=== PATIENT | female | born 1965 | race Caucasian/White ===

== ENCOUNTER → 2020-04-23 14:47 | Outpatient (CLI) | payer MEDICARE, SELFPAY ==
[2020-04-23 14:58] LABS: Basophils # 0.1 K/mm3 (0-0.2); Basophils % 1.4 % (0.1-2.0); Eosinophils # 0.1 K/mm3 (0.0-0.4); Eosinophils % 1.3 % (0.1-12.0); Hematocrit 47.3 % (37.0-47.0); Hemoglobin 15.4 g/dL (12.2-16.2); Lymphocytes # 2.9 K/mm3 (0.7-4.5); Lymphocytes % 33.4 % (10-50); Mean Corpuscular HGB Conc 32.5 g/dL (31.8-35.4); Mean Corpuscular Hemoglobin 28.6 pg (27.0-31.2); Mean Corpuscular Volume 88.1 fl (81-99); Mean Platelet Volume 9.1 fl (7.4-10.4); Monocytes # 0.4 K/mm3 (0.1-1.0); Monocytes % 4.7 % (1.7-9.3); Neutrophils # 5.2 K/mm3 (1.8-7.8); Neutrophils % 59.3 % (37.0-80.0); Platelet Count 245 K/mm3 (142-424); Red Blood Count 5.37 M/mm3 (4.20-5.40); White Blood Count 8.7 K/mm3 (4.8-10.8)
[2020-04-23 15:07] LABS: Alanine Aminotransferase 11 U/L (12-78); Albumin Level 4.2 g/dl (3.5-5.0); Albumin/Globulin Ratio 1.4 (1.1-1.8); Alkaline Phosphatase 107 U/L (38-126); Anion Gap 11.5 mEq/L (5-15); Aspartate Amino Transferase 23 U/L (14-36); Bilirubin,Total 0.5 mg/dl (0.2-1.3); Blood Urea Nitrogen 12 mg/dl (7-17); Calcium 9.3 mg/dl (8.4-10.2); Carbon Dioxide 31 mmol/L (22.0-30.0); Chloride 101 mmol/L (98-107); Chol/HDL Ratio 5.4 (1-3.5); Cholesterol 298 mg/dl (140-200); Estimated Glomerular Filt Rate 87 ml/min (>60); GFR (African American) 106 ML/MIN (>60); Glucose 105 mg/dl (74-100); HDL Cholesterol 55 mg/dl (40-60); Potassium 4.5 mmoL/L (3.5-5.1); Sodium 139 mmol/L (136-145); Total Protein,Serum 7.2 g/dl (6.3-8.2); Triglycerides 146 mg/dl (30-150); VLDL Cholesterol 29 mg/dL (0-40)
[2020-04-23 15:18] LABS: Direct LDL Cholesterol 212.71 mg/dL (100-129)
[2020-04-23 15:26] LABS: 25-OH Vitamin D, Total 24.5 ng/mL (30-100)
[2020-04-23 15:40] LABS: Thyroid Stimulating Hormone 0.89 uIU/mL (0.465-4.68)
== END ==
PROVIDERS: Visit Provider Family Medicine
DX: E55.9 Vitamin D deficiency, unspecified (principal); F32.9 Major depressive disorder, single episode, unspecified; I10 Essential (primary) hypertension; E78.5 Hyperlipidemia, unspecified
CPT/HCPCS: 80053; 80061; 82306; 84443; 85025

== ENCOUNTER → 2020-09-18 13:55 | Outpatient (CLI) | payer MEDICARE, SELFPAY ==
[2020-09-18 14:05] LABS: Chloride 103 mmol/L (98-107)
[2020-09-18 14:06] LABS: Potassium 4.2 mmoL/L (3.5-5.1); Sodium 142 mmol/L (136-145)
[2020-09-18 14:08] LABS: Alanine Aminotransferase 30 U/L (12-78); Alkaline Phosphatase 112 U/L (38-126); Anion Gap 15.2 mEq/L (5-15); Aspartate Amino Transferase 45 U/L (14-36); Bilirubin,Total 0.5 mg/dl (0.2-1.3); Blood Urea Nitrogen 11 mg/dl (7-17); Carbon Dioxide 28 mmol/L (22.0-30.0); Cholesterol 135 mg/dl (140-200); Estimated Glomerular Filt Rate 87 ml/min (>60); GFR (African American) 105 ML/MIN (>60); Triglycerides 108 mg/dl (30-150)
[2020-09-18 14:09] LABS: Albumin Level 4.6 g/dl (3.5-5.0); Albumin/Globulin Ratio 1.7 (1.1-1.8); Calcium 9.2 mg/dl (8.4-10.2); Globulin 2.7 g/dL (1.3-3.2); Glucose 90 mg/dl (74-100); Total Protein,Serum 7.3 g/dl (6.3-8.2)
[2020-09-18 18:13] LABS: Direct LDL Cholesterol 64.28 mg/dL (100-129)
[2020-09-18 18:14] LABS: HDL Cholesterol 45 mg/dl (40-60); VLDL Cholesterol 22 mg/dL (0-40)
== END ==
PROVIDERS: Visit Provider Family Medicine
DX: E78.5 Hyperlipidemia, unspecified (principal)
CPT/HCPCS: 80053; 80061

== ENCOUNTER → 2021-03-05 13:25 | Outpatient (CLI) | payer MEDICARE, SELFPAY ==
[2021-03-05 15:48] LABS: Basophils # 0.1 K/mm3 (0-0.2); Basophils % 0.9 % (0.1-2.0); Eosinophils # 0.1 K/mm3 (0.0-0.4); Eosinophils % 1.5 % (0.1-12.0); Hematocrit 46.7 % (37.0-47.0); Hemoglobin 15.1 g/dL (12.2-16.2); Lymphocytes # 2.8 K/mm3 (0.7-4.5); Lymphocytes % 33.7 % (10-50); Mean Corpuscular HGB Conc 32.3 g/dL (31.8-35.4); Mean Corpuscular Hemoglobin 28.5 pg (27.0-31.2); Mean Corpuscular Volume 88.4 fl (81-99); Mean Platelet Volume 9.4 fl (7.4-10.4); Monocytes # 0.4 K/mm3 (0.1-1.0); Monocytes % 4.5 % (1.7-9.3); Neutrophils # 4.9 K/mm3 (1.8-7.8); Neutrophils % 59.3 % (37.0-80.0); Platelet Count 307 K/mm3 (142-424); Red Blood Count 5.28 M/mm3 (4.20-5.40); Red Cell Distribution Width 13.2 % (11.5-17.5); White Blood Count 8.2 K/mm3 (4.8-10.8)
[2021-03-05 16:02] LABS: Alanine Aminotransferase 24 U/L (12-78); Albumin Level 4.5 g/dl (3.5-5.0); Albumin/Globulin Ratio 1.7 (1.1-1.8); Alkaline Phosphatase 100 U/L (38-126); Aspartate Amino Transferase 39 U/L (14-36); Bilirubin,Total 0.5 mg/dl (0.2-1.3); Blood Urea Nitrogen 14 mg/dl (7-17); Calcium 9.2 mg/dl (8.4-10.2); Carbon Dioxide 33 mmol/L (22.0-30.0); Chloride 102 mmol/L (98-107); Chol/HDL Ratio 2.3 (1-3.5); Cholesterol 142 mg/dl (140-200); Estimated Glomerular Filt Rate 104 ml/min (>60); GFR (African American) 126 ML/MIN (>60); Globulin 2.6 g/dL (1.3-3.2); Glucose 94 mg/dl (74-100); HDL Cholesterol 61 mg/dl (40-60); Sodium 142 mmol/L (136-145); Total Protein,Serum 7.1 g/dl (6.3-8.2); Triglycerides 76 mg/dl (30-150); VLDL Cholesterol 15 mg/dL (0-40)
[2021-03-05 16:13] LABS: Direct LDL Cholesterol 71.05 mg/dL (100-129)
== END ==
PROVIDERS: Visit Provider Family Medicine
DX: I25.10 Atherosclerotic heart disease of native coronary artery without angina pectoris (principal)
CPT/HCPCS: 80053; 80061; 85025

== ENCOUNTER → 2022-01-18 13:30 | Outpatient (CLI) | payer MEDICARE, SELFPAY ==
[2022-01-18 14:53] LABS: Alanine Aminotransferase 20 U/L (12-78); Albumin Level 4.2 g/dl (3.5-5.0); Albumin/Globulin Ratio 1.6 (1.1-1.8); Alkaline Phosphatase 108 U/L (38-126); Aspartate Amino Transferase 60 U/L (14-36); Bilirubin,Total 0.2 mg/dl (0.2-1.3); Blood Urea Nitrogen 14 mg/dl (7-17); Calcium 8.5 mg/dl (8.4-10.2); Carbon Dioxide 33 mmol/L (22.0-30.0); Chloride 100 mmol/L (98-107); Chol/HDL Ratio 2.9 (1-3.5); Cholesterol 128 mg/dl (140-200); Estimated Glomerular Filt Rate 128 ml/min (>60); GFR (African American) 154 ML/MIN (>60); Globulin 2.7 g/dL (1.3-3.2); Glucose 89 mg/dl (74-100); HDL Cholesterol 44 mg/dl (40-60); Sodium 141 mmol/L (136-145); Total Protein,Serum 6.9 g/dl (6.3-8.2); Triglycerides 105 mg/dl (30-150); VLDL Cholesterol 21 mg/dL (0-40)
[2022-01-18 15:04] LABS: Direct LDL Cholesterol 56.36 mg/dL (100-129)
== END ==
PROVIDERS: PCP Family Medicine; Visit Provider Family Medicine
DX: E78.5 Hyperlipidemia, unspecified (principal); I11.9 Hypertensive heart disease without heart failure; I25.10 Atherosclerotic heart disease of native coronary artery without angina pectoris
CPT/HCPCS: 80053; 80061

== ENCOUNTER → 2023-03-13 09:59 | Outpatient (CLI) | payer MEDICARE, SELFPAY ==
[2023-03-13 18:02] LABS: MANUAL DIFFERENTIAL MANUAL DIFFERENTIAL (MANUAL DIFF)
[2023-03-13 18:11] LABS: Basophils # 0.1 K/mm3 (0-0.2); Basophils % 0.6 % (0.1-2.0); Eosinophils # 0.1 K/mm3 (0.0-0.4); Eosinophils % 1.1 % (0.1-12.0); Hematocrit 45.7 % (37.0-47.0); Hemoglobin 14.8 g/dL (12.2-16.2); Lymphocytes # 2.7 K/mm3 (0.7-4.5); Lymphocytes % 29.1 % (10-50); Mean Corpuscular HGB Conc 32.5 g/dL (31.8-35.4); Mean Corpuscular Volume 89.4 fl (81-99); Mean Platelet Volume 10.4 fl (7.4-10.4); Monocytes # 0.4 K/mm3 (0.1-1.0); Monocytes % 4.6 % (1.7-9.3); Neutrophils # 6.1 K/mm3 (1.8-7.8); Neutrophils % 64.6 % (37.0-80.0); Platelet Count 182 K/mm3 (142-424); Red Blood Count 5.11 M/mm3 (4.20-5.40); Red Cell Distribution Width 13.8 % (11.5-17.5); White Blood Count 9.4 K/mm3 (4.8-10.8)
[2023-03-13 18:18] LABS: Alanine Aminotransferase 26 U/L (12-78); Albumin/Globulin Ratio 1.5 (1.1-1.8); Alkaline Phosphatase 86 U/L (38-126); Aspartate Amino Transferase 44 U/L (14-36); Bilirubin,Total 0.3 mg/dl (0.2-1.3); Blood Urea Nitrogen 16 mg/dl (7-17); Calcium 8.2 mg/dl (8.4-10.2); Carbon Dioxide 33 mmol/L (22.0-30.0); Chloride 101 mmol/L (98-107); Chol/HDL Ratio 3.4 (1-3.5); Cholesterol 148 mg/dl (140-200); Estimated Glomerular Filt Rate 86 ml/min (>60); GFR (African American) 104 ML/MIN (>60); Globulin 2.6 g/dL (1.3-3.2); Glucose 106 mg/dl (74-100); HDL Cholesterol 44 mg/dl (40-60); Potassium 4.5 mmoL/L (3.5-5.1); Total Protein,Serum 6.6 g/dl (6.3-8.2); Triglycerides 102 mg/dl (30-150); VLDL Cholesterol 20 mg/dL (0-40)
[2023-03-13 18:26] LABS: Lymphocytes % 35 % (10-50); Monocytes % 7 % (2-9); Neutrophils % 58 % (42-76); Platelet Estimate Normal; RBC Morphology Normal; Total Cells Counted 100
[2023-03-13 18:28] LABS: Direct LDL Cholesterol 78.36 mg/dL (100-129)
[2023-03-13 18:37] LABS: Anion Gap 9.5 mEq/L (5-15); Sodium 139 mmol/L (136-145)
== END ==
PROVIDERS: PCP Family Medicine; Visit Provider Family Medicine
DX: E78.5 Hyperlipidemia, unspecified (principal); I25.10 Atherosclerotic heart disease of native coronary artery without angina pectoris; Z79.899 Other long term (current) drug therapy
CPT/HCPCS: 80053; 80061; 84443; 85007; 85014; 85018; 85048; 85049

== ENCOUNTER 2024-02-28 10:31 | Outpatient (CLI) | payer MEDICARE, SELFPAY ==
[2024-02-28 18:55] LABS: Basophils # 0.1 K/mm3 (0-0.2); Basophils % 0.8 % (0.1-2.0); Eosinophils # 0.1 K/mm3 (0.0-0.4); Hematocrit 49.3 % (37.0-47.0); Hemoglobin 16.2 g/dL (12.2-16.2); Lymphocytes # 2.5 K/mm3 (0.7-4.5); Lymphocytes % 21.5 % (10-50); Mean Corpuscular HGB Conc 32.8 g/dL (31.8-35.4); Mean Corpuscular Hemoglobin 29.2 pg (27.0-31.2); Mean Platelet Volume 10.2 fl (7.4-10.4); Monocytes # 0.6 K/mm3 (0.1-1.0); Monocytes % 5.2 % (1.7-9.3); Neutrophils # 8.4 K/mm3 (1.8-7.8); Neutrophils % 71.7 % (37.0-80.0); Platelet Count 224 K/mm3 (142-424); Red Blood Count 5.54 M/mm3 (4.20-5.40); Red Cell Distribution Width 13.3 % (11.5-17.5); White Blood Count 11.7 K/mm3 (4.8-10.8)
[2024-02-28 19:14] LABS: Alanine Aminotransferase 25 U/L (12-78); Albumin Level 4.7 g/dl (3.5-5.0); Albumin/Globulin Ratio 1.7 (1.1-1.8); Alkaline Phosphatase 83 U/L (38-126); Aspartate Amino Transferase 37 U/L (14-36); Bilirubin,Total 0.6 mg/dl (0.2-1.3); Blood Urea Nitrogen 13 mg/dl (7-17); Calcium 9.6 mg/dl (8.4-10.2); Carbon Dioxide 31 mmol/L (22.0-30.0); Chloride 103 mmol/L (98-107); Chol/HDL Ratio 2.2 (1-3.5); Cholesterol 162 mg/dl (140-200); Estimated Glomerular Filt Rate 86 ml/min (>60); GFR (African American) 104 ML/MIN (>60); Globulin 2.7 g/dL (1.3-3.2); Glucose 96 mg/dl (74-100); HDL Cholesterol 74 mg/dl (40-60); Sodium 139 mmol/L (136-145); Total Protein,Serum 7.4 g/dl (6.3-8.2); Triglycerides 89 mg/dl (30-150); VLDL Cholesterol 18 mg/dL (0-40)
[2024-02-28 19:25] LABS: Direct LDL Cholesterol 83.35 mg/dL (100-129)
== END 2024-02-28 23:59 | disposition home or self-care (01) ==
LOC: LAB.DROPOF 02-29 14:35
PROVIDERS: PCP Family Medicine; Visit Provider Family Medicine
DX: E78.5 Hyperlipidemia, unspecified (principal)
CPT/HCPCS: 80053; 80061; 85025

== ENCOUNTER 2025-03-03 08:12 | Outpatient (CLI) | payer MEDICARE, SELFPAY ==
[2025-03-03 15:38] LABS: Hematocrit 46.8 % (37.0-47.0); Hemoglobin 15.2 g/dL (12.2-16.2); Immature Granulocytes % 0.2 %; Mean Corpuscular HGB Conc 32.5 g/dL (31.8-35.4); Mean Corpuscular Hemoglobin 29.0 pg (27.0-31.2); Mean Corpuscular Volume 89.1 fl (81-99); Nucleated Red Blood Cells % 0 %; Platelet Count 203 K/mm3 (142-424); Red Blood Count 5.25 M/mm3 (4.20-5.40); Red Cell Distribution Width-SD 44.7 fL; White Blood Count 8.5 K/mm3 (4.8-10.8)
[2025-03-03 15:54] LABS: Albumin Level 4.4 g/dl (3.5-5.0); Chloride 102 mmol/L (98-107); Potassium 4.5 mmoL/L (3.5-5.1); Sodium 142 mmol/L (136-145)
[2025-03-03 15:56] LABS: Blood Urea Nitrogen 19 mg/dl (7-17); Creatinine,Serum 0.60 mg/dl (0.52-1.04); Estimated Glomerular Filt Rate 102 ml/min (>60); GFR (African American) 124 ML/MIN (>60)
[2025-03-03 15:57] LABS: Alanine Aminotransferase 26 U/L (12-78); Albumin/Globulin Ratio 1.6 (1.1-1.8); Alkaline Phosphatase 91 U/L (38-126); Anion Gap 11.5 mEq/L (5-15); Aspartate Amino Transferase 39 U/L (14-36); Bilirubin,Total 0.4 mg/dl (0.2-1.3); Calcium 9.1 mg/dl (8.4-10.2); Carbon Dioxide 33 mmol/L (22.0-30.0); Cholesterol 151 mg/dl (140-200); Globulin 2.8 g/dL (1.3-3.2); Glucose 103 mg/dl (74-100); HDL Cholesterol 75 mg/dl (40-60); Magnesium 1.8 mg/dl (1.6-2.3); Total Protein,Serum 7.2 g/dl (6.3-8.2); Triglycerides 44 mg/dl (30-150)
[2025-03-03 16:48] LABS: Hepatitis C Ab Qual. W/ RFX NEGATIVE (Negative)
[2025-03-04 06:39] LABS: Hepatitis B Surface Antigen Negative (Negative)
--- OUTSIDE RECORDS SUMMARY | 2025-03-05 08:42 | XMS_ITS | Data Portability ---
Author Organization Formerly [facility] Address [address] [place] [address] Care Team Providers Care Director Camp Name Role Phone MARIA D ELISE Primary Care Provider [phone] MARIA D ELISE Referring Provider [phone] Assessment Encounter Date Assessment Date Assessment LastModified by Organization Details LastModified Time 01/08/2019 01/08/2019 53-year-old female new patient referral for chronic low back and bilateral leg pain. She reports the pain started about 2 years ago related to no Precipitating injury that she can recall. She has been treating this with chiropractor and uisd-eah-srtfzkx medications with minimal relief. She tried muscle relaxants and NSAIDs again with minimal relief. She is not a fan of medications and she is here today to discuss possible interventional therapy. She did have a lumbar MRI From November 2018 which we reviewed today and shows L4-5 central and right sided Disc extrusion with impingement on the thecal sac. There is also degenerative disease at L3-4 and L5-S1. She reports the pain is located across the low back with radiation down the outside of both legs to the knees. She reports the pain does not typically go down past the knees. Pain is worse on the right sided than it is on the left. She has some decreased sensation along the outside of the right leg. She denies any weakness. She denies any bowel or bladder incontinence. She describes pain as a constant aching that is aggravated with activity including standing walking bending and lifting. We discussed treatment options including interventional therapy. History and exam are consistent with lumbar and leg pain from degenerative disc disease, supported by imaging. Has not responded to >3 months conservative therapy. Patient would not tolerate physical therapy secondary to increased pain with activity. Symptoms are affecting her ability to perform ADLs. I am going to schedule her for a bilateral transforaminal epidural injection at L4-5. She does not want any medications at this time so urine screen will not be sent off for confirmation. [email or web address] Not available 01/08/2019 13:46:58 Plan of Treatment Reminders Order Date Submit Date Provider Last Modified By Organization Details Last Modified Time Details Appointments None recorded. Lab drug screen, urine 2018 019 Not available 9 13:49:17 Referral None recorded. Procedures epidural steroid injection, lumbar transforami nal (PROC) 2018 019 [email or web address] 3 J Luis Paniagua MD, [address], [place], [address], 9 14:18:40 Surgeries None recorded. Imaging None recorded. Medication Orders None recorded. Patient TargetsNo targets recorded. 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 The electronic translation of spoken language may permit erroneous or at times nonsensical words of phrases to be inadvertently transcribed; Although I have reviewed the note for such errors, some may still exist. Not available 01/08/2019 13:09:44 Reason for Referral None Reported. Results Created Date Observation Date Name Description Value Unit Range Abnormal Flag Note LastModifiedBy Organization Detail LastModifiedTime 01/09/2001/08/2019 drug scree n, urine THC: positi ve Not Available [facility] [address], [place], [address], 01/08/2019 13:02:53 01/09/2001/08/2019 drug scree n, urine Buprenorphin e: negati ve Not Available [facility] [address], [place], [address], 01/08/2019 13:02:53 01/09/2001/08/2019 drug scree n, urine TCA: negati ve Not Available [facility] [address], [place], [address], 01/08/2019 13:02:53 01/09/20 19 01/08/2019 drug scree n, urine Barbiturates : negati ve Not Available [facility] [address], [place], [address], 01/08/2019 13:02:53 01/09/20 19 01/08/2019 drug scree n, urine Benzodiazepi rubi: positi ve Not Available [facility] [address], [place], [address], 01/08/2019 13:02:53 01/09/20 19 01/08/2019 drug scree n, urine Methadone: negati ve Not Available [facility] [address], [place], [address], 01/08/2019 13:02:53 01/09/20 19 01/08/2019 drug scree n, urine Amphetamines : negati ve Not Available [facility] [address], [place], [address], 01/08/2019 13:02:53 01/09/20 19 01/08/2019 drug scree n, urine Morphine/Opi ates: negati ve Not Available [facility] [address], [place], [address], 01/08/2019 13:02:53 01/09/20 19 01/08/2019 drug scree n, urine Oxycodone: negati ve Not Available [facility] [address], [place], [address], 01/08/2019 13:02:53 01/09/20 19 01/08/2019 drug scree n, urine MDMA: negati ve Not Available [facility] [address], [place], [address], 01/08/2019 13:02:53 01/09/20 19 01/08/2019 drug scree n, urine Cocaine: negati ve Not Available [facility] [address], [place], [address], 01/08/2019 13:02:53 01/09/20 19 01/08/2019 drug scree n, urine Methamphetam ine: negati ve Not Available [facility] [address], [place], [address], 01/08/2019 13:02:53 01/08/20 19 12/07/2018 MRI, lumba r spine , w/o contr ast No observ ation record ed. [email or web address] Not Available 2018 15:27:10 01/08/20 19 11/27/2018 MRI, cervi talya spine , w/o contr ast No observ ation record ed. [email or web address] Not Available 2018 15:31:36 Result Notes None recorded. Problems Name Problem SNOMED Code Status Onset Date Resolution Date Notes Provider Name and Address Organization Details Recorded Time Degeneration of lumbar intervertebra l disc 64378558 Active 2018 Isabella Wade aidan [facility] 9 13:39:18 Long-term drug therapy Active 2018 J Luis Panigaua MD [address] [place] [address], [address] , [facility] 9 13:48:56 Lumbar radiculopathy 023891473 Active 2018 J Luis Paniagua MD [address] [place] [address], [address] , [facility] 9 13:49:04 Problem Notes None recorded. Procedures Surgical History Date Name Laterality Status Provider Name and Address Organization Details Recorded Time 7 General Surgery completed Isabella KOHLI [facility] 01/08/2019 13:16:38 Imaging Results None recorded. Procedure Notes None recorded. Medical Equipment None Reported. Allergies No known drug allergies Medications Name Sig Start Date Stop Date Status Note LastModified by Organization Details LastModified Time prednisone 20 mg tablet 2018 completed Not Available Not Available Not Available atenolol 25 mg tablet active Not Available Not Available Not Available venlafaxine ER 150 mg capsule,extend ed release 24 hr active Not Available Not Available Not Available omeprazole 40 mg capsule,delaye d release active Not Available Not Available No t Available buspirone 10 mg tablet 2018 completed Not Available Not Available Not Available alprazolam 2 mg tablet active Not Available Not Available No t Available azithromycin 500 mg tablet 2018 completed Not Available Not Available Not Available Vitals Date Recorded Body height Body mass index (BMI) Body weight Pain severity - 0-10 verbal numeric rating [Score] - Reported Heart rate Oxygen saturation Oxygen saturation in Arterial blood by Pulse oximetry Systolic And Diastolic Provider Name and Address Organization Details Last Updated DateTime 9 168.91 cm 30.4 kg/m2 80896.1 4 g 7 80 /min 94 % 94 % 134/80 mm[Hg] Isabella Wade [facility] 9 13:13:19 Social History Question Answer Notes LastModified by Organizat ion Details LastModified Time Tobacco Smoking Status Current Every Day Smoker Isabella Wade [facility] 01/08/2019 13:10:52 What Is Your Level Of Caffeine Consumption? Occasional Information not available 01/08/2019 How Much Tobacco Do You Chew? None Information not available 01/08/2019 Are You Deaf Or Do You Have Serious Difficulty Hearing? No Information not available 01/08/2019 Which Illicit Or Recreational Drugs Have You Used? Marijuana Information not available 01/08/2019 Education 12 Information no t available 01/08/2019 Hard Of Hearing Or Deaf In One Or Both Ears? No Information not available 01/08/2019 Prescription Drug Abuse No Information not available 01/08/2019 Disability No Information no t available 01/08/2019 History Of Sexual Abuse No Information not available 01/08/2019 Marital Status Informatio n not available 01/08/2019 What Was The Date Of Your Most Recent Tobacco Screening? 01/08/2019 Information not available 01/08/2019 At What Age Did You Start Smoking Tobacco? 17 Information not available 01/08/2019 How Much Tobacco Do You Smoke? 1.5 PPD Information not available 01/08/2019 General Stress Level High Information not available 01/08/2019 On What Date Was Tobacco Cessation Counseling Provided? 01/08/2019 Information not available 01/08/2019 How Many Years Have You Smoked Tobacco? 33 Information not available 01/08/2019 Do You Have Difficulty Walking Or Climbing Stairs? Yes Information not available 01/08/2019 Sex: Unknown Functional Status Question Answer Note LastModified by Organizat ion Details LastModified Time What is your level of alcohol consumption? None Information not available 01/08/2019 Are you able to walk independently without assistance or assistive devices? YESWOREST Information not available 01/08/2019 Do you have difficulty doing errands alone? 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 Yes Information not available 01/08/2019 What is your exercise level? None Information not available 01/08/2019 Mental Status Question Answer Note LastModified by Organization D etails LastModified Time Do you have difficulty concentrating, remembering or making decisions? Yes Information no t available 01/08/2019 Family History Relationship Description Onset Age of this Age Resolved Age Notes LastModified by Organization Details LastModified Time Mother Fibromyalgia Not availa ble 01/08/2019 13:10:39 Mother Mental disorder Not available 2018 13:10:39 Mother Disease of liver Not available 2018 13:10:39 Mother Rheumatoid arthritis Not available 2018 13:10:39 Medical History Condition Response Bipolar Disease N Coronary Artery Disease N Gout N Seizure Disorder N Osteoarthritis N Hernia N Head Trauma/Injury N Depression Y Anemia N Heart Attack ([place]) N Anxiety Disorder Y Diabetes N Cardiomyopathy N Bleeding Disorder N AIDS/HIV N Inflammatory Bowel Disease N Cancer N Stroke N Dementia N Substance Abuse N Sleep Apnea N Hepatitis N Liver Disease N Heart Disease N Rheumatoid Arthritis N Chronic Low Back Pain N Headaches N Fibromyalgia N Hypertension N Osteoporosis N Kidney Disease N Autoimmune Disease N Gynecological HistoryNo gynecological history recorded. Obstetrics History GPAL:G 0 P 0 0 0 0 Past Encounters Encounter ID Performer Location Encounter Start Date Encounter Closed Date Diagnosis/Indication Diagnosis SNOMED-CT Code Diagnosis ICD10 Code Diagnosis IMO Codes Diagnosis Note [id number] J Luis Paniagua MD [facility] [address] [place] [address] 01/08/2019 13:01:45 01/08/2019 13:42:24 Long-term drug therapy 677605797 Z79.899 Degenerati on of lumbar intervertebral disc 88222345 M51.36 Lumbar radiculopathy 128 721186 M54.16 Health Concerns Section Related Observation LastModified by Organization Detai ls LastModified Time None Recorded Concern Status LastModified by Organization Details LastModified Time None Recorded Advance Directives Directive None Recorded Payers Insurance Date Sequence Insurance Name Policy Number Policy Stacy Covered Member ID Stacy Member ID Guarantor Name 12/27/2018 1 [id number] Isabel Cool [id number] Isabel Cool 01/05/2019 1 [place] [id number] Isabel Cool [id number] Isabel Cool Notes Date Note Type Note Provider Name and Address Organization Details Recorded Time 01/09/20 19 text/htm l Neck painReported by PatientHPIFor quality, patient reportstightnessandaching. For onset, patient reportsdate of onset: (12/2016). For location, patient reportsbilateral paraspinalandradiating to the bilateral upper extremities to the shoulder. For duration, patient reportsconstant. For context, patient reportsliftingandoveruse. For pain intensity, patient reportscurrent pain level: 6/10andworst pain level: 7/10. For alleviating factors, patient reportsheat,looking down,looking up, andlying down. For aggravating factors, patient reportscold weather,turning head to the left,turning head to the right,twisting, andmovement/positioning. For timing, patient reportsvaries throughout the day. For associated symptoms, patient reportsno weakness,no numbness,no tingling,no dizziness,no pain in upper extremities,no popping/clicking,no bladder incontinence, andno bowel incontinence. For prior imaging, patient reportsmri. For previous cervical surgery, patient reportsnone. For interventional treatment history, patient reportsnone. For previous pt, patient reportscompleted all recommended pt visits,2weeks of pt completed:,dates: (07/2018), andresponse to therapy: no pain improvement([facility]). For other conservative treatment, patient reportsice: __. For working, patient reportsno. For prior pain management, patient reportsno. Low back painReported by PatientHPIFor onset, patient reportsdate of onset: (2008). For location, patient reportsbuttock: __. For duration, patient reportsworse during the workday. For context, patient reportsoveruseandlifting. For quality, patient reportsaching,stabbing,throb ruiz, andsharp (intermittent). For pain intensity, patient reportssevere,current pain level: 7/10, andworst pain level: 9/10. For alleviating factors, patient reportschanging positions,heat,ice, andchiropractic care (minimal relief). For aggravating factors, patient reportssitting (long periods),standing,walking,up stairs,downstairs, andcold weather. For associated symptoms, patient reportsno weakness,no numbness,no tingling,no swelling,no popping/clicking,no bowel incontinence,no urinary retention,no urinary incontinence, andno perineal paresthesia/anesthesia. For prior imaging, patient reportsmri (done at e,). For lumbar surgery, patient reportsnone. For physical therapy, patient reportscompleted all recommended pt visitsandcomplete __weeks(done with chiropractor-dr. woods. regimented pt done for neck). For medications history, patient reportsnsaids: (ibuprofen-not helpful)andmuscle relaxants: (not sure which ones-not helpful). For prior pain management, patient reportsno. J Luis Paniagua MD [address] [place] [address], [address], [facility] 01/08/2019 16:29:54 OBGyn Episode No OBEpisode recorded.
== END 2025-03-03 23:59 ==
LOC: LAB.DROPOF 03-05 08:13
PROVIDERS: PCP Family Medicine; Visit Provider Family Medicine
DX: E78.5 Hyperlipidemia, unspecified (principal); I11.9 Hypertensive heart disease without heart failure; F41.9 Anxiety disorder, unspecified; Z11.59 Encounter for screening for other viral diseases
CPT/HCPCS: 80053; 80061; 83735; 85025; 86803; 87340; 87389